=== PATIENT | male | born 1980 | race Caucasian/White ===

== ENCOUNTER 2019-11-16 23:24 | Emergency (ER) | payer BC ==
[~2019-11-16] VITALS: Ht 157.5 cm; Wt 73.0 kg
[2019-11-17] MEDS ORDERED: LIDOCAINE HCL 1% 20ML VIAL (Pyxis) INJ INFIL ONE (00:45)
[2019-11-17] MEDS ORDERED: TETANUS, DIPHTHERIA, PERTUSSIS VAC/PF 0.5ML (>7YR OLD) IM ONE (00:45)
[2019-11-17 01:20] VITALS: BP 121/64
== END 2019-11-17 01:20 | disposition home or self-care (01) ==
LOC: ER 23:24
DX: S61.216A Laceration without foreign body of right little finger without damage to nail, initial encounter (principal); W26.0XXA Contact with knife, initial encounter; Y93.89 Activity, other specified; Y92.018 Other place in single-family (private) house as the place of occurrence of the external cause
CPT/HCPCS: 12001; 90471; 90715; 99283; J3490

== ENCOUNTER 2020-06-16 15:11 | Emergency (ER) | payer SELFPAY ==
[~2020-06-16] VITALS: Ht 154.9 cm; Wt 76.2 kg
[2020-06-16] MEDS ORDERED: IBUPROFEN 600MG TABLET PO STA (15:36)
[2020-06-16 16:05] LABS: CLARITY URINE CLEAR (CLEAR); COLOR URINE DARK YELLOW (YELLOW); KETONES URINE 1+ (NEGATIVE); LEUKOCYTE ESTERASE URINE NEGATIVE (NEGATIVE); NITRITE URINE NEGATIVE (NEGATIVE); OCCULT BLOOD URINE NEGATIVE (NEGATIVE); PH URINE 5.5 (4.5-8.0); PROTEIN URINE 1+ (NEGATIVE); SPECIFIC GRAVITY URINE 1.032 (1.005-1.030)
[2020-06-16 16:10] LABS: HEMATOCRIT. 46.9 % (42.0-52.0); HEMOGLOBIN. 16.4 g/dL (14.0-18.0); MEAN CORPUSCULAR HEMOGLOBIN 31.1 pg (28.0-32.0); MEAN CORPUSCULAR VOLUME 89.2 fL (80.0-94.0); MEAN PLATELET VOLUME 7.6 fl (7.4-10.4); PLATELET 257 x1000/uL (130-400); RED BLOOD CELL COUNT 5.26 mill/uL (4.7-6.1); RED CELL DISTRIBUTION WIDTH 13.7 % (11.6-14.6)
[2020-06-16 16:12] LABS: CHLORIDE 106 mEq/L (98-107)
[2020-06-16 17:28] VITALS: BP 120/76
[2020-06-16 17:35] LABS: PLATELET ESTIMATE NORMAL
== END 2020-06-16 17:29 | disposition home or self-care (01) ==
LOC: ER 15:11
DX: B34.9 Viral infection, unspecified (principal); R53.1 Weakness
CPT/HCPCS: 36415; 71045; 80053; 81003; 85025; 93005; 99285

== ENCOUNTER 2022-11-03 01:02 | Emergency (ER) | payer MEDICAID ==
[~2022-11-03] VITALS: Ht 172.7 cm; Wt 79.0 kg
[2022-11-03 01:05] VITALS: BP 160/100
== END 2022-11-03 03:17 | disposition home or self-care (01) ==
LOC: ER 01:02
DX: R42 Dizziness and giddiness (principal); I10 Essential (primary) hypertension; E11.65 Type 2 diabetes mellitus with hyperglycemia; Z68.26 Body mass index [BMI] 26.0-26.9, adult; K21.9 Gastro-esophageal reflux disease without esophagitis
CPT/HCPCS: 99283